=== PATIENT | male | born 1955 | race Caucasian/White ===

== ENCOUNTER 2016-08-30 05:45 | Day surgery (SDC) | payer OTHER ==
--- NOTE | 2016-08-29 18:07 | Pre-Procedure Note/Attestation ---
Pre-Procedure Note/Attestation Complete Prior to Procedure Planned Procedure: bilateral Procedure Narrative: 1. Septoplasty 2. SMR inf right turbinate 3. SMR inf left turbinate Indications for Procedure Pre-Operative Diagnosis: 1. Nasal septal deviation 2. Hypertrophied right inferior turbinate 3. Hypertrophied left inferior turbinate Attestation I attest that I discussed the nature of the procedure; its benefits; risks and complications; and alternatives (and the risks and benefits of such alternatives ), prior to the procedure, with the patient (or the patient's legal guest service representative). I attest that, if there was a reasonable possibility of needing a blood transfusion, the patient (or the patient's legal guest service representative) was given the [place] Department [employer] standardized written summary, pursuant to the [place] Blood Safety Act ([place] Health and Safety Code # 1645, as amended). I attest that I re-evaluated the patient just prior to the surgery and that there has been no change in the patient's H&P, done by Dr. Florence and my H/P is included. ALEX DUBOSE August 29, 2016 18:07
--- NOTE | 2016-08-29 23:39 | Pre-op HX & Phy Repo 2 SIG ---
DATE OF ADMISSION: 08/30/2016 Preoperative history and physical dictated on 08/29/2016. DATE OF SURGERY: 07/31/2016 SURGEON: Jonathan Bishop M.D. INDICATIONS FOR SURGERY: The patient hypertrophied right and left inferior turbinates and septal deviation with nasal airway obstruction, refractory to nasal steroids and antihistamines. PAST MEDICAL HISTORY: Significant for mild sleep apnea AHI is 9, allergic rhinitis, and nephrotic syndrome. He also has mild asthma. PAST SURGICAL HISTORY: Kidney stone as an outpatient. MEDICATIONS: Include Advair Diskus and some anxiety for which he takes Zoloft. FAMILY HISTORY: He is and 5 children. SOCIAL HISTORY: Denies alcohol and drugs. 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 Never has been a smoker. PHYSICAL EXAMINATION: VITAL SIGNS: The patient is 73 inches and 240 pounds. BMI is 31.66. His blood pressure is 120/80, temperature 98.6 degrees, pulse rate 98.6, when I last saw him on 08/16/2016. HEENT: Head is normocephalic. Eyes, pupils are equal, round, and reactive to light and EOMI. Lips, tongue, and pharynx are normal except he has a wide base of tongue and excessive tissue of the soft palate. Nose, septal deviation and bilateral hypertrophied inferior turbinates. HEART: Normal S1 and S2. No S3 or S4. No murmur, bruit, gallop, or rub. CHEST: Clear to auscultation and percussion. EXTREMITIES: Grossly normal. ASSESSMENT: He is a candidate for septoplasty subsection right and left inferior turbinates as an outpatient. PLAN: As above. Please note, he had a history and physical by Dr. Florence. 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 He did not get a chest x-ray. For whatever reason, he did not get it done and so I have written an order for him to have it in the morning when he gets to the hospital. Jonathan Bishop M.D. DR: ROLANDO JOB#: [id number] CC:
[2016-08-30] VITALS (11 sets, daily range): BP systolic 122–132; BP diastolic 32–89
[~2016-08-30] VITALS: Ht 185.4 cm; Wt 111.1 kg
[~2016-08-30 05:45] MED LIST: SERTRALINE HCL50 MG ORAL
[2016-08-30] MEDS ORDERED: MONTELUKAST SOD10 MG ORAL (06:38)
[2016-08-30] MEDS ORDERED: Lidocaine 1% 10mg/ml/Epi 0.005mg/ml 30ml vial INJ ONE (06:57)
[2016-08-30] MEDS ORDERED: Cocaine 4% Vial TOPIC ONE (06:57)
[2016-08-30] MEDS ORDERED: Saline Nasal Gel (Ayr) NASAL ONE (06:57)
[2016-08-30] MEDS ORDERED: Bupivacaine w/Epi 0.5% 30ml Vial INJ ONE (06:57)
[2016-08-30] MEDS ORDERED: NS Irrig 1000ml ONE (07:30)
[2016-08-30] MEDS ORDERED: Sterile Water Irrig 1000ml IRRIG ONE (07:30)
[2016-08-30] MEDS ORDERED: fentaNYL 100 mcg/2 mL IV ONE (07:30)
[2016-08-30] MEDS ORDERED: Dexamethasone 4mg/ml vial ONE (07:30)
[2016-08-30] MEDS ORDERED: LR 1000ml ONE (07:30)
[2016-08-30] MEDS ORDERED: Propofol 10mg/ml 20ml IV ONE (07:30)
[2016-08-30] MEDS ORDERED: Midazolam 2mg/2ml Inj ONE (07:30)
[2016-08-30] MEDS ORDERED: LR 1000ml 1,000 ML IVLG SCH (07:41)
--- NOTE | 2016-08-30 07:41 | Anethesia Preoperative Eval ---
Anesthesia Pre-op PMH/ROS General Date of Evaluation: August 30, 2016 Time of Evaluation: 07:37 Anesthesiologist: Rj ASA Score: ASA 2 Mallampati Score Class I : Soft palate, uvula, fauces, pillars visible Class II: Soft palate, uvula, fauces visible Class III: Soft palate, base of uvula visible Class IV: Only hard plate visible Mallampati Classification: Class II Surgeon: Edna Diagnosis: Nasal septum deviation Surgical Procedure: Septoplasty Anesthesia History: none Family History: no anesthesia problems Allergies: Coded Allergies: NO KNOWN ALLERGIES (Unverified Allergy, Unknown, 05/01/15) Medications: see eMAR Past Medical History Cardiovascular: Denies: CAD, HTN, MT, arrhythmia, other, valve dz Pulmonary: Reports: ERIC - heavy snoring, asthma - milt, Denies: COPD, other Gastrointestinal/Genitourinary: Reports: GERD, Denies: CRI, ESRD, other Neurologic/Psychiatric: Reports: depression/anxiety, Denies: CVA, TIA, dementia, other Endocrine: Denies: DM, hypothyroidism, other, steroids HEENT: Denies: TORRES MARTINEZ (L), TORRES MARTINEZ (R), cataract (L), cataract (R), glaucoma, other Hematology/Immune: Denies: DVT, anemia, bleeding disorder, other Musculoskeletal/Integumentary: Denies: DDD, DJD, OA, RA, edema, other Other: other - overweight PMH Narrative: as above PSxH Narrative: Colonoscopy Anesthesia Pre-op Phys. Exam Physician Exam Last Vital Signs Date Time Temp Pulse Resp B/P Pulse Ox O2 Delivery O2 Flow Rate FiO2 08/30/16 06:52 98.1 58 18 122/80 95 Room Air Constitutional: NAD Cardiovascular: RRR, no M/R/G Respiratory: CTA Gastrointestinal: S/NT/ND Airway Exam Mallampati Score: Class II MO: full Neck: flexible ROM: full Teeth: intact Dentures: no lower, no upper Anesthesia Pre-op A/P Labs see chart Studies Pre-op Studies: EKG - NSR Risk Assessment & Plan Assessment: ASA 2 Plan: GA with LMA Status Change Before Surgery: No Pre-Antibiotics Drug: Ancef 2gr Given Within 1 Hr of Incision: Yes Time Given: 07:55 BEAR MENDEZ M.D. August 30, 2016 07:41
[2016-08-30] MEDS ORDERED: Hydromorphone 0.5mg/0.5ml inj IVP PRN (07:45)
[2016-08-30] MEDS ORDERED: Meperidine 25mg/0.5ml Inj IV PRN (07:45)
[2016-08-30] MEDS ORDERED: DiphenhydrAMINE 50mg/ml Inj IVP PRN (07:45)
--- NOTE | 2016-08-30 08:22 | Brief Operative Note ---
Immediate Post Operative Note Operative Note Pre-op Diagnosis: 1. Nasal septal deviation 2. Hypertrophied right inferior turbinate 3. Hypertrophied left inferior turbinate Procedure: Septoplasty SMR bilateral inferior turbinates Post-op Diagnosis: same as pre-op Surgeon: Angela Dubose Manager Credit Collections: none Additional Surgeons: none Anesthesiologist: Anushka Anesthesia: general Specimen: none Complications: none Condition: stable Estimated Blood Loss: volume - 25cc Drains: none Packing: Stamberger nasal gel Implant(s) used?: No ALEX DUBOSE August 30, 2016 08:22
[2016-08-30] MEDS ORDERED: Norco 5mg/325mg tab ORAL PRN (08:30)
[2016-08-30] MEDS ORDERED: Metoclopramide 10mg/2ml Inj IVP PRN (08:30)
[2016-08-30] MEDS ORDERED: HYDROmorphone 1mg/ml Carpuject SUBQ PRN (08:30)
--- NOTE | 2016-08-30 09:23 | Immediate Post-Op Evaluation ---
Immediate Post-Op Evalulation Immediate Post-Op Evalulation Procedure: Septoplasty Date of Evaluation: August 30, 2016 Time of Evaluation: 08:31 IV Fluids: 700 Blood Products: none Estimated Blood Loss: min Urinary Output: none Blood Pressure Systolic: 127 Blood Pressure Diastolic: 56` Pulse Rate: 64 Respiratory Rate: 20 O2 Sat by Pulse Oximetry: 99 Temperature (Fahrenheit): 97.6 Pain Score (1-10): 2 Nausea: No Vomiting: No Complications none Patient Status: reacts, patent, none Hydration Status: adequate BEAR MENDEZ M.D. August 30, 2016 09:23
--- NOTE | 2016-08-30 09:58 | 48 Hour Post Anesthesia Eval ---
Post Anesthesia Evaluation Procedure: Septoplasty Date of Evaluation: August 30, 2016 Time of Evaluation: 09:57 Blood Pressure Systolic: 116 0: 58 Pulse Rate: 68 Respiratory Rate: 22 Temperature (Fahrenheit): 97.6 O2 Sat by Pulse Oximetry: 99 Airway: patent Nausea: No Vomiting: No Pain Intensity: 2 Hydration Status: adequate Cardiopulmonary Status: stable Mental Status/LOC: patient returned to baseline Follow-up Care/Observations: n/a Post-Anesthesia Complications: none Follow-up care needed: ready to discharge BEAR MENDEZ M.D. August 30, 2016 09:58
--- NOTE | 2016-08-30 10:07 | Discharge Instructions ---
Discharge Instructions Discharge Instructions Follow up with: Dr. Dubose next week-pt has appt already Diet: regular Resume Normal Activity?: No Activity: light activity Pneumonia Vaccine: pt refused vaccine Influenza Vaccine (Jan to Jun): pt refused vaccine Follow Up Orders pt has printed instructions which we reviewed at this pre op last week along with his post op meds Return to Work/School on: September 13, 2016 For Surgical Patients Clean and Dry: surgical site Dressing Care: may change May shower: No Contact your physician for: bleeding, pain, tenderness, redness, swelling, yellowish discharge in the op. site For Congestive Heart Failure Reminder Report to your physician any weight gain of 5 pounds or more in one week. ALEX DUBOSE August 30, 2016 10:07
--- NOTE | 2016-08-30 12:08 | Diagnostic Imaging Report ---
Indication: Chest Pain Comparison: None A single view chest radiograph was obtained. Findings: Cardiomediastinal appearance is within normal limits for age. Pulmonary vascularity is appropriate. The diaphragmatic contour is smooth and costophrenic angles are sharp. No pleural effusions are identified. The bones are unremarkable. Impression: No acute findings
--- NOTE | 2016-08-30 21:49 | Operative Note - Dictated ---
DATE OF OPERATION: 08/30/2016 INDICATION FOR PROCEDURE: The patient is a 61-year-old patient with nasal airway obstruction, who has failed nasal steroids and antihistamines with septal deviation in bilateral right and left inferior turbinates. PREOPERATIVE DIAGNOSIS: The patient is a 61-year-old patient with nasal airway obstruction, who has failed nasal steroids and antihistamines with septal deviation in bilateral right and left inferior turbinates. POSTOPERATIVE DIAGNOSIS: The patient is a 61-year-old patient with nasal airway obstruction, who has failed nasal steroids and antihistamines with septal deviation in bilateral right and left inferior turbinates. FINDINGS: The patient is a 61-year-old patient with nasal airway obstruction, who has failed nasal steroids and antihistamines with septal deviation in bilateral right and left inferior turbinates. SURGEON: Jonathan Bishop M.D. FORMS BUILDER: None. ANESTHESIOLOGIST: Dr. Hodges. Anesthesia: LMA general anesthesia as well as 10 mL 50:50 mixture 1% lidocaine with 1:100,000 epinephrine and Marcaine 0.5% with 1:200,000 epinephrine. Additionally, 4 mL of 4% topical cocaine placed on two nasal pledgets in either nostril for a total of 4. TECHNIQUE: Initially, a Tobin incision was made to remove the vomer on both, the right and the left. Utilizing a small osteotome, the vomer was removed on both sides and the Tobin incision was closed with a 4-0 plain suture. I proceeded to make an incision in either inferior turbinate with a #15 blade, elevated with a radiofrequency needle at a setting of 6 covered with saline gel for 10 seconds each, two sticks in either inferior turbinate. I then outfractured the inferior turbinates with a Boies elevator. I then placed Stammberger nasal gel in either nasal airway total of 1 syringe full. COUNTS: Sponge and needle count was correct. ESTIMATED BLOOD LOSS: 25 mL. COMPLICATIONS: None. DRAINS: None. The patient awake, alert, and stable in recovery room post extubation in the operating room. Jonathan Bishop M.D. DR: SASHA JOB#: [id number] CC:
[2016-09-02] MEDS ORDERED: ceFAZolin sod 1 GM in D5W 55 ML IV ONE (07:00)
[2016-09-02] MEDS ORDERED: Dexamethasone 4mg/ml vial IVP ONE (07:00)
== END 2016-08-30 10:15 | disposition home or self-care (01) ==
LOC: SUR 05:45
DX: J34.2 Deviated nasal septum (principal); J34.3 Hypertrophy of nasal turbinates; J34.89 Other specified disorders of nose and nasal sinuses; G47.33 Obstructive sleep apnea (adult) (pediatric); J45.909 Unspecified asthma, uncomplicated; N04.9 Nephrotic syndrome with unspecified morphologic changes; E78.00 Pure hypercholesterolemia, unspecified; K21.9 Gastro-esophageal reflux disease without esophagitis; F41.9 Anxiety disorder, unspecified; F32.9 Major depressive disorder, single episode, unspecified; K57.30 Diverticulosis of large intestine without perforation or abscess without bleeding; E66.3 Overweight; Z68.32 Body mass index [BMI] 32.0-32.9, adult; Z87.442 Personal history of urinary calculi
CPT/HCPCS: 30140; 30520; 71010; J0690; J1100; J2250; J2405; J2704; J3010; J7120; 94003; 94150